=== PATIENT | female | born 1965 | race African-American/Black ===

== ENCOUNTER 2020-11-05 11:21 | Outpatient (CLI) | payer MEDICARE, MEDICAID | END 2020-11-05 11:22 | disposition home or self-care (01) | LOC: CSHRAD 11:21 | PROVIDERS: ATTEND Internal Medicine | DX: J45.41 Moderate persistent asthma with (acute) exacerbation (principal) | CPT/HCPCS: 71046 ==

== ENCOUNTER 2022-03-02 10:24 | Outpatient (CLI) | payer OTHER | END 2022-03-02 10:25 | disposition home or self-care (01) | LOC: CSHLAB 10:24 | PROVIDERS: ATTEND Surgery | DX: Z01.818 Encounter for other preprocedural examination (principal); K64.8 Other hemorrhoids; K62.89 Other specified diseases of anus and rectum; Z20.822 Contact with and (suspected) exposure to COVID-19 | CPT/HCPCS: 87811; 93005; 93010 ==

== ENCOUNTER 2022-03-05 07:58 | Day surgery (SDC) | payer OTHER ==
[2022-03-03 15:18] VITALS: BMI 28.5
[2022-03-05] MEDS ORDERED: Lidocaine 1% MPF 2 ML VIAL ONE (08:35)
[2022-03-05] MEDS ORDERED: EPINEPHrine 1 MG/ML AMP ONE (08:38)
[2022-03-05] MEDS ORDERED: Bupivacaine PF 0.5% 30 ML VIAL ONE (08:38)
[2022-03-05] MEDS ORDERED: Lidocaine 2% Jelly 5 ML TUBE ONE (08:51)
[2022-03-05] MEDS ORDERED: CEFAZOLIN 2 GM VIAL ONE (09:38)
[2022-03-05] MEDS ORDERED: Fentanyl 100 MCG/2 ML VIAL ONE (09:47)
[2022-03-05] MEDS ORDERED: PROPOFOL 20 ML ONE (09:47)
[2022-03-05] MEDS ORDERED: Dexamethasone 4 mg/ml Vial ONE (10:03)
[2022-03-05] MEDS ORDERED: Ketorolac Tromethamine 30 MG/ML VIAL ONE (10:03)
[2022-03-05] MEDS ORDERED: Ondansetron PF 4 MG/2 ML Vial ONE (10:03)
[2022-03-05] MEDS ORDERED: HYDROcodone/Acetaminophen 5/325 mg Tablet PO PRN (10:47)
== END 2022-03-05 12:15 | disposition home or self-care (01) ==
LOC: CSHSDC 07:58
PROVIDERS: ATTEND Surgery
PROC: 06BY0ZC Excision of Hemorrhoidal Plexus, Open Approach (ICD-10-PCS; principal; 2022-03-05)
DX: K64.8 Other hemorrhoids (principal); K64.4 Residual hemorrhoidal skin tags; N81.6 Rectocele; I10 Essential (primary) hypertension; E78.00 Pure hypercholesterolemia, unspecified; J45.909 Unspecified asthma, uncomplicated; K58.1 Irritable bowel syndrome with constipation; K21.9 Gastro-esophageal reflux disease without esophagitis; G47.00 Insomnia, unspecified; G43.909 Migraine, unspecified, not intractable, without status migrainosus; F41.1 Generalized anxiety disorder; F32.A Depression, unspecified; M19.90 Unspecified osteoarthritis, unspecified site; Z86.16 Personal history of COVID-19; Z20.822 Contact with and (suspected) exposure to COVID-19; Z79.52 Long term (current) use of systemic steroids; Z79.899 Other long term (current) drug therapy; Z88.5 Allergy status to narcotic agent; Z91.040 Latex allergy status; Z88.8 Allergy status to other drugs, medicaments and biological substances; Z90.710 Acquired absence of both cervix and uterus; Z98.890 Other specified postprocedural states
CPT/HCPCS: 88304; J0171; J0690; J1100; J1885; J2405; J2704; J3010; S0020